=== PATIENT | male | born 1970 | race Caucasian/White ===

== ENCOUNTER 2016-02-19 05:27 | Emergency (ER) | payer OTHER ==
--- NOTE | 2016-02-19 05:39 | EDPRACDOC ---
- History of Present Illness HPI: TSANG WITH VISION CHANGES. PT IS [employer]. YESTERDAY AT 230P HE HAD TSANG. STOPPED DRINKING SODAS WITH CAFFEINE A FEW DAYS AGO. HAD PROBLEMS WITH BLURRY VISION BL YESTERDAY. WENT ON A CALL AND AROUND 3PM AND VISION IMPROVED. LATER AT 2330 PT HAD TSANG AND VISION PROBLEMS AGAIN. TSANG BETTER NOW. DENIES OTHER SXS. Location: Reports: Generalized Pain Quality: Reports: Mild Associated Signs and Symptoms: Reports: Denies Symptoms, Vision Changes <Kenny Burris - Last Filed: 02/19/16 05:43> <Carmen Franco - Last Filed: 02/19/16 11:12> - General Information Stated Complaint: VISION ISSUES Home Medications: Home Medications Atorvastatin Calcium [Lipitor] 20 mg PO QHS 02/19/16 Cyclobenzaprine HCl [Flexeril] 10 mg PO Q8H PRN 02/19/16 Gabapentin [Neurontin] 300 mg PO QHS 02/19/16 Hydrocodone/Acetaminophen [Lortab 5-325 mg Tablet] 1 each PO Q4H PRN #15 tablet 02/19/16 Losartan/Hydrochlorothiazide [Hyzaar 100-25 Tablet] 1 tab PO DAILY 02/19/16 Ondansetron [Zofran Odt] 4 mg PO Q6H PRN #10 tab.rapdis 02/19/16 Tramadol HCl [Ultram] 50 mg PO Q4H PRN 02/19/16 Allergies/Adverse Reactions: Allergies Allergy/AdvReac Type Severity Reaction Status Date / Time No Known Allergies Allergy Verified 02/19/16 06:07 ED Past Medical History - History Reviewed Yes Nurses notes reviewed and agree except as marked <Kenny Burris - Last Filed: 02/19/16 05:43> EDM Review of Systems - Review of Systems ROS Negative Except as Marked: Yes All systems reviewed and were negative except as marked <Kenny Burris - Last Filed: 02/19/16 05:43> - Physical Exam Constitutional: Alert (Awake), No apparent distress Oriented to: Time, Person, Place Last recorded Vital Signs: Oxygen Pulse Oxygen Saturation O2 Device Oxygen Flow Rate Fraction of Inspired Oxygen ( FIO2) - HEENT Head: Normal ( normocephalic) Eye Exam: Normal (PERRL, EOMI, Sclera white) Oropharynx: Normal (Pharynx:Moist without exudate,Gums-no swelling) ENT EAC: Normal TMJ: Normal Nose: No Symptoms Reported (septum midline) Neck: Normal (FROM, trachea at midline) HEENT Comment: DISCS ARE SHARP BL - Respiratory/Cardiovascular Respiratory: Normal - CTA (BBS clear to auscultation without adventitious sounds ) Cardiovascular: Normal (RRR without murmur, gallop or rub) - GI Auscultation: Normal (NABS) Palpation: Normal (Soft,No rebound or guarding, non distended) Tenderness: Non tender Barillas's Sign: Negative - Musculoskeletal Back: Normal (Non-Tender) Extremities: Normal (Normal tone, Pulses 2+ No cyanosis or edema, FROM) - Integumentary Skin: Normal, Warm, Dry Lymphatics: Normal (no adenopathy) - Neurologic Memory Impaired: Normal Motor Function: Normal (Normal tone, Pulses 2+ No cyanosis or edema, FROM) Cranial Nerve: Normal (CN II-X11 intact sensation, strength 5/5) Cerebellar: Normal Mood Description: Normal Perception: Normal <Kenny Burris - Last Filed: 02/19/16 05:43> - Physical Exam Last recorded Vital Signs: Last Vital Signs Temp 98.3 F 02/19/16 05:30 Pulse 86 02/19/16 10:21 Resp 18 02/19/16 10:21 BP 140/94 02/19/16 10:21 Pulse Ox 94 02/19/16 10:21 Oxygen Pulse Oxygen Saturation 94 O2 Device Room Air Oxygen Flow Rate Fraction of Inspired Oxygen ( FIO2) <Carmen Franco - Last Filed: 02/19/16 11:12> - Results 02/19/16 05:56 02/19/16 05:56 WBC 9.2 xk/uL (3.8-10.8) 02/19/16 05:56 RBC 5.03 xM/uL (4.70-6.10) 02/19/16 05:56 Hgb 14.6 g/dL (14.0-18.0) 02/19/16 05:56 Hct 43.3 % (42-52) 02/19/16 05:56 MCV 86 fL (80-94) 02/19/16 05:56 MCH 29.0 pg (27-32) 02/19/16 05:56 MCHC 33.7 g/dl (33-36) 02/19/16 05:56 RDW 13.3 % (11.5-14.5) 02/19/16 05:56 Plt Count 303 xk/uL (130-400) 02/19/16 05:56 MPV 8.3 fL (7.4-10.4) 02/19/16 05:56 Neut % (Auto) 46.6 % (45-76) 02/19/16 05:56 Lymph % (Auto) 36.8 % (17-44) 02/19/16 05:56 [place] % (Auto) 10.3 % (3-10) H 02/19/16 05:56 Eos % (Auto) 5.0 % (0-5) 02/19/16 05:56 Baso % (Auto) 1.3 % (0-2) 02/19/16 05:56 Absolute Neuts (auto) 4.23 xk/uL (1.7-8.2) 02/19/16 05:56 Absolute Lymphs (auto) 3.31 xk/uL (0.65-4.75) 02/19/16 05:56 Sodium 140 mEq/L (137-146) 02/19/16 05:56 Potassium 3.7 mEq/L (3.5-5.1) 02/19/16 05:56 Chloride 102 mEq/L (98-107) 02/19/16 05:56 Carbon Dioxide 27 mMOL/L (22-33) 02/19/16 05:56 Anion Gap 15 mEq/L (8-16) 02/19/16 05:56 BUN 17 MG/DL (9-20) 02/19/16 05:56 Creatinine 1.40 MG/DL (0.66-1.25) H 02/19/16 05:56 Estimated GFR (MDRD) 54 mL/min (>=60) L 02/19/16 05:56 Glucose 103 MG/DL (70-99) H 02/19/16 05:56 Calculated Osmolality 271 MOs/Kg (270-290) 02/19/16 05:56 Calcium 9.7 MG/DL (8.4-10.2) 02/19/16 05:56 Total Bilirubin 0.6 MG/DL (0.2-1.3) 02/19/16 05:56 AST 28 IU/L (17-59) 02/19/16 05:56 ALT 40 IU/L (21-72) 02/19/16 05:56 Alkaline Phosphatase 63 IU/L (38-126) 02/19/16 05:56 Total Protein 7.9 G/DL (6.3-8.2) 02/19/16 05:56 Albumin 4.3 G/DL (3.5-5.0) 02/19/16 05:56 Lab Results 02/19/16 02/19/16 05:56 05:56 WBC 9.2 RBC 5.03 Hgb 14.6 Hct 43.3 MCV 86 MCH 29.0 MCHC 33.7 RDW 13.3 Plt Count 303 MPV 8.3 Neut % (Auto) 46.6 Lymph % (Auto) 36.8 [place] % (Auto) 10.3 H Eos % (Auto) 5.0 Baso % (Auto) 1.3 Absolute Neuts (auto) 4.23 Absolute Lymphs (auto) 3.31 Sodium 140 Potassium 3.7 Chloride 102 Carbon Dioxide 27 Anion Gap 15 BUN 17 Creatinine 1.40 H Estimated GFR (MDRD) 54 L Glucose 103 H Calculated Osmolality 271 Calcium 9.7 Total Bilirubin 0.6 AST 28 ALT 40 Alkaline Phosphatase 63 Total Protein 7.9 Albumin 4.3 - Diagnostic Imaging Head Image interpreted by: Radiologist MRI BRAIN: No acute infarct or intracranial hemorrhage.. No intracranial mass. Small developmental venous anomaly right parietal lobe incidentally noted. Minimal nonspecific white matter changes. Similar findings described in patients with migraine headaches and/or small vessel disease. - Additional Information PT D/W DR. LESLIE (OPTHO) AND WITH AVINASH LOYOLA (SENIOR ADVISORY FOR NEURO). DR. LESLIE THINKS IT MAY BE A CN PALSY. HE REC F/U WITH NEURO. PT TO F/U WITH DR. SMITH'S OFFICE. <Carmen Franco - Last Filed: 02/19/16 11:12> <Kenny Burris - Last Filed: 02/19/16 05:43> Decision Time to Discharge: 11:08 - Departure Yes I personally saw and evaluated the patient. 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
[2016-02-19] MEDS ORDERED: NS 1,000 ML IV ONE (05:42)
[2016-02-19 05:44] VITALS: TEMP 98.3; BMI 68.0
[2016-02-19 06:03] LABS: AUTOMATED BASOPHIL 1.3 % (0-2); AUTOMATED LYMPH 36.8 % (17-44); AUTOMATED MONOCYTE 10.3 % (3-10); AUTOMATED NEUTROPHIL 46.6 % (45-76); MPV 8.3 fL (7.4-10.4)
[2016-02-19 06:23] LABS: BLOOD UREA NITROGEN 17 MG/DL (9-20); CALCIUM 9.7 MG/DL (8.4-10.2); CALCULATED OSMOLALITY 271 MOs/Kg (270-290); CHLORIDE 102 mEq/L (98-107); GLUCOSE 103 MG/DL (70-99); SODIUM LEVEL 140 mEq/L (137-146); TOTAL PROTEIN 7.9 G/DL (6.3-8.2)
[2016-02-19] MEDS ORDERED: ONDANSETRON HCL 4 MG/2 ML VIAL IV ONE (07:29)
[2016-02-19] MEDS ORDERED: MORPHINE 4 MG/ML INJECTION IV ONE (07:29)
--- NOTE | 2016-02-19 10:52 | DIRPT ---
CLINICAL DATA: 46-year-old male with bilateral blurred vision since yesterday. No trauma. Some nausea. Headache. Initial encounter. EXAM: MRI HEAD WITHOUT AND WITH CONTRAST TECHNIQUE: Multiplanar, multiecho pulse sequences of the brain and surrounding structures were obtained without and with intravenous contrast. CONTRAST: 20 cc MultiHance. COMPARISON: None. FINDINGS: No acute infarct. No intracranial hemorrhage. No intracranial mass. Small developmental venous anomaly right parietal lobe incidentally noted. Minimal nonspecific white matter changes. Similar findings described in patients with migraine headaches and/or small vessel disease. No hydrocephalus. Orbital structures unremarkable. Major intracranial vascular structures are patent. Cervical medullary junction, pituitary region and pineal region within normal limits. IMPRESSION: No acute infarct or intracranial hemorrhage.. No intracranial mass. Small developmental venous anomaly right parietal lobe incidentally noted. Minimal nonspecific white matter changes. Similar findings described in patients with migraine headaches and/or small vessel disease. Electronically Signed By: Adrián Pyle M.D. On: 02/19/2016 10:50
[2016-02-19 11:17] VITALS: BP 147/89; PULSE 76
== END 2016-02-19 11:18 | disposition home or self-care (01) ==
LOC: ED 05:27
DX: H53.2 Diplopia (principal); H49.20 Sixth [abducent] nerve palsy, unspecified eye
CPT/HCPCS: 36415; 70553; 80053; 85025; 96361; 96374; 96375; 99284; A9577; J2270; J2405